=== PATIENT | male | born 1960 | race Hispanic/Latino ===

== ENCOUNTER → 2023-12-12 | Outpatient (CLI) | payer OTHER ==
[2023-12-12 16:35] LABS: POTASSIUM 4.1 mmol/L (3.5-5.1)
== END | disposition home or self-care (01) ==
LOC: LAB 15:33
PROVIDERS: ATTEND Internal Medicine Cardiovascular Disease
DX: I48.0 Paroxysmal atrial fibrillation (principal); R06.00 Dyspnea, unspecified
CPT/HCPCS: 36415; 80048; 83880

== ENCOUNTER 2024-12-09 11:18 | Emergency (ER) | payer OTHER ==
[~2024-12-09] VITALS: Ht 165.1 cm; Wt 83.5 kg
[2024-12-09 11:30] VITALS: BP 134/84; PULSE 89; RESP 16; TEMP 98.2; O2SAT 98
[2024-12-09] MEDS ORDERED: SILV50CR31 TP (12:32)
[2024-12-09] MEDS ORDERED: ACET650S14 PR (12:32)
--- NOTE | 2024-12-09 12:34 | ERN ---
General Chief Complaint: Arm Swelling/Redness Stated Complaint: CHEMICAL BURN TO RT LOWER ARM Time Seen by MD: 11:39 History of Present Illness Initial Comments The patient is a 64-year-old male with a significant past medical history of AFib, congestive heart failure, type 2 diabetes mellitus, dyslipidemia, essential hypertension, prior stroke, TIA presenting with 4 day history of right forearm erythema, swelling and tenderness following accidental chemical exposure. The patient reports that 4 days ago, while washing dishes he accidentally tipped his right hand and forearm into a sink filled with a gal of Clorox bleach diluted in water. He developed dizziness during the episode but did not lose consciousness. Since then he had increased erythema, pain and swelling localized to right dorsal wrist forearm and a circular pattern resembling a wrist watch burn. The redness has progressively spread from the wrist proximally towards the mid forearm. No blisters or ulcerations noted currently the wound is healing and reduced pain and severity since past 2 days Allergies: Coded Allergies: lisinopril (Unverified Allergy, Unknown, 12/09/24) naproxen (Unverified Allergy, Unknown, 12/09/24) Home Meds Active Scripts Silver Sulfadiazine (Silver Sulfadiazine) 1 % Cream..g., 1 APPL TP BID for burn for 10 Days, #50 GM 0 Refills Prov:KATIE BAUER MD 12/09/24 Discontinued Scripts Acetaminophen (Acetaminophen) 650 Mg Supp.rect, [address] Q6HPRN PRN for pain or fever for 4 Days, #12 SUPP 0 Refills Prov:KATIE BAUER MD 12/09/24 Past Medical History Past Medical History: A-Fib, Diabetes-Type II, High Cholesterol, Heart Disease, Hypertension, Stroke, TIA Past Surgical History: Other Surgical History Other: HERNIA ROS Dictation CONSTITUTIONAL: NO CHILLS, NO FEVER, NO WEAKNESS, NO DIAPHORESIS, NO MALAISE. HEAD/FACE: NO SIGNS OF TRAUMA. EENT: NO EYE PAIN, NO BLURRED VISION, NO TEARING, NO DOUBLE VISION, NO EAR PAIN, NO EAR DISCHARGE, NO NOSE PAIN, NO NASAL CONGESTION, NO THROAT PAIN, NO T HROAT SWELLING, NO MOUTH PAIN. RESPIRATORY: NO COUGH, NO ORTHOPNEA, NO SOB, NO STRIDOR, NO WHEEZING. CARDIOVASCULAR: NO CHEST PAIN, NO EDEMA, NO PALPITATIONS, NO SYNCOPE. GASTROINTESTINAL/ABDOMINAL: NO ABDOMINAL PAIN, NO CONSTIPATION, NO DIARRHEA, N O NAUSEA, NO VOMITING. GENITOURINARY: NO ABNORMAL DISCHARGE, NO DYSURIA, NO FREQUENT URINATION, NO HEMATURIA. NO COMPLAINTS OF PAIN IN THE GENITALS. MUSCULOSKELETAL: NO BACK PAIN, NO GOUT, NO JOINT PAIN, NO JOINT SWELLING, NO MUSCLE PAIN, NO MUSCLE STIFFNESS, NO NECK PAIN. INTEGUMENTARY: CHANGE IN COLOR, NO CHANGE IN HAIR/NAILS, NO DRYNESS, NO LESION, NO LUMPS, PAINFUL BLISTERS, RASH ON THE LEFT MEDIAL LEG AND WORSENING SWELLING NEUROLOGICAL/PSYCH: NO ANXIETY, NOT DEPRESSED, NO EMOTIONAL PROBLEM, NO HEADACHE, NO NUMBNESS, NO PRE-EXISTING DEFICIT, NO HISTORY OF SEIZURES, NO TREMORS, NO WEAKNESS. HEMATOLOGIC/LYMPHATIC: NOT ANEMIC, NO HISTORY OF BLOOD CLOTS, NO APPARENT BLEEDING, NO BRUISING, GLANDS NOT SWOLLEN. Skin REPORTS LOCALIZED SWELLING, REDNESS AND TENDERNESS OF THE RIGHT FOREARM. ALL SYSTEMS NEGATIVE, EXCEPT NOTED. Physical Exam Physical Exam Dictation VITAL SIGNS: REVIEWED. GENERAL APPEARANCE: ALERT, ORIENTED X3, NO ACUTE DISTRESS, OBESE. HEAD AND FACE: NON-TRAUMATIC. EYES: PERRL, PINK CONJUNCTIVAS, EYELID NO TRAUMA, ANTERIOR CHAMBER CLEAR. EARS: PINNAS INTACT AND NO SIGNS OF TRAUMA OR ERYTHEMA. EAR CANALS CLEAR AND NO DISCHARGE. TMS NO ERYTHEMA. NOSE: NO DISCHARGE, NO BLEEDING. OROPHARYNX: MOUTH NORMAL, TEETH NO CARIES, TONGUE PINK. PHARYNX CLEAR, NO ERYTHEMA. TONSILS NO EXUDATES, NO ABSCESSES NOTED. MUCOUS MEMBRANE MOIST. NECK: SUPPLE, NON-TENDER, NO THYROMEGALY, NO MASSES, NO JVD, NO BRUITS. BREAST: DEFERRED. CHEST: NO TENDERNESS, NO CREPITUS, NO PARADOXICAL MOVEMENT, NO RETRACTIONS. LUNGS: CLEAR, WELL-VENTILATED, SYMMETRIC, NO RALES, NO WHEEZING, NO RHONCHI, NO STRIDOR, GOOD BREATH SOUNDS BILATERALLY. HEART: REGULAR RATE, REGULAR RHYTHM, NO MURMUR, NO GALLOPS. VASCULAR: NO PERIPHERAL EDEMA. ABDOMEN: SOFT, POSITIVE BOWEL SOUNDS, NONDISTENDED, NO GUARDING, NONTENDER, NO REBOUND, NO MASSES NO HEPATOMEGALY, NO SPLENOMEGALY, NO CARLSON'S SIGN, NO HERNIAS. RECTAL: DEFERRED. GENITAL: DEFERRED. NEUROLOGICAL: NORMAL SPEECH, GROSS MOTOR FUNCTION INTACT, GROSS SENSORY FUNCTION INTACT. MUSCULOSKELETAL: NECK NONTENDER, FULL RANGE OF MOTION, BACK NONTENDER, FULL RANGE OF MOTION. EXTREMITIES: NONTENDER, FULL RANGE OF MOTION. SKIN: RIGHT FOREARM SHOWS AN ERYTHEMATOUS, WELL-DEMARCATED AREA OVER THE DORSAL AND VENTRAL SITES NEAR THE WRIST EXTENDING TO THE MID FOREARM. NO BULLAE OR SLUGGISH NOTED. TENDER TO PALPATION. NO PURULENT DRAINAGE. NO CREPITUS. LYMPHATICS: DEFERRED. MDM MDM: DIFFERENTIAL DIAGNOSIS: SUPERFICIAL PARTIAL THICKNESS CHEMICAL BURN, CONTACT DERMATITIS VERSUS SECOND-DEGREE BURN, LOCALIZED CELLULITIS SECONDARY TO CHEMICAL EXPOSURE. RATIONALE: TESTS CONSIDERED AND ORDERED SECONDARY TO SHARED DECISION MAKING INC LUDE: LABS, ECG AND RADIOLOGY PREVIOUS OUTSIDE RECORDS REVIEWED: OLD ER VISITS. RISK OF COMPLICATION AND/OR MORBIDITY OR MORTALITY OF PATIENT MANAGEMENT: NONE MEDICATIONS-PER MEDICATION RECONCILIATION NEED FOR HOSPITALIZATION: PATIENT DOES MEET CRITERIA FOR HOSPITALIZATION. NEED FOR EMERGENCY MAJOR/MINOR SURGERY: NO THERE ARE NO SOCIAL CONCERNS WITH THIS PATIENT. PRESCRIPTION DRUG MANAGEMENT PRESCRIPTIONS WILL INCLUDE SYMPTOMATIC CARE PATIENT'S PRIOR EXTERNAL MEDICAL RECORDS FROM OTHER ER VISITS WERE REVIEWED BY ME INDICATED. PRIOR TESTING AND RESULTS FROM PREVIOUS VISITS WERE REVIEWED. PRIOR TESTS WERE TAKEN INTO ACCOUNT WITH MEDICAL DECISION MAKING AND RESOURCE UTILIZATION, INDEPENDENT HISTORIAN/HISTORIANS WERE USED TO OBTAIN COMPLETE MEDICAL HISTORY. I INDEPENDENTLY INTERPRETED THE TEST THAT WERE PERFORMED, RESULTS WERE REVIEWED BY ME AND CONSIDERED FINDINGS ON RADIOLOGY IF ORDERED. MEDICAL MANAGEMENT AND EXAMINATION INTERPRETATION DISCUSSIONS WERE HAD BY ME WITH OTHER QUALIFIED HEALTHCARE PROFESSIONALS INDICATED FOR THE PATIENT'S CARE. PATIENT PRESENTS WITH LOCALIZED CHEMICAL MORALES FROM CLOROX EXPOSURE WITHOUT SIGNS OF SYSTEMIC TOXICITY OR SECONDARY INFECTION. NO SIGNS OF COMPARTMENTAL SYNDROME OR NECROTIZING SOFT TISSUE INFECTION AT THIS TIME. DIZZINESS LIKELY MULTIFACTORIAL. DUE TO NO EVIDENCE OF ACUTE HEART FAILURE EXACERBATION STROKE OR TIA. MORALES ARE BEING MANAGED CONSERVATIVELY UNLESS BLISTERING OR INFECTION DEVELOPS. ED Course Orders Procedure Category Date Status Time Tetanus,Diphtheria PHA 12/09/24 Complete Tox [Adult] (Diphther 12:30 Silver Sulfadiazine PHA 12/09/24 Complete (Silvadene) 13:00 Current Medications Medications (Trade) Dose Ordered Sig/Idania Route PRN Reason Start Time Stop Time Status Last Admin Dose Admin Silver Sulfadiazine (Silvadene) 1 APPLY ONCE ONCE TP 12/09/24 13:00 12/09/24 12:50 DC 12/09/24 12:40 Tetanus/ Diphtheria Toxoids Adsorbed (DiphthERIA-teTANUS TOXOID [ADULT]/ DECAVAC) 0.5 ml ONCE ONCE IM 3/24/25 12:30 12/09/24 12:31 DC 12/09/24 12:42 Vital Signs Date Time Temp Pulse Resp B/P (MAP) Pulse Ox O2 Delivery O2 Flow Rate FiO2 12/09/24 11:30 98.2 89 16 134/84 98 Room Air* 0 21 12/09/24 11:20 98.2 89 16 134/84 98 Room Air 0 DX & DISP Disposition: Discharge Decision to Admit Date: Dec 09, 2024 Decision to Admit Time: 12:25 Departure Impression: Primary Impression: Superficial chemical burn of right forearm Condition: Stable Scripts Silver Sulfadiazine (Silver Sulfadiazine) 1 % Cream..g. 1 APPL TP BID for burn for 10 Days, #50 GM 0 Refills Prov: KATIE BAUER MD 12/09/24 Additional Instructions: Silver sulfadiazine 1% cream applied topically to the burn area b.i.d. Acetaminophen 650 mg p.o. p.r.n. q.6h p.r.n. for pain. Tetanus toxoid IM has been administered. Wound center consult has been placed for further evaluation. Referrals: KAYLA LAM DO (PCP) CHANDLER GOMEZ MD Time of Disposition: 12:19 ATTESTATION BY PHYSICIAN I have seen and examined the patient. I reviewed the documentation, medical decision making, and treatment plan as noted by the resident above. I agree with the findings and plan of care. Muna Villavicencio RAGHAVA R MD Dec 09, 2024 12:34 PORTER VILLAVICENCIO DO Dec 10, 2024 08:00
[2024-12-09] MEDS: SILVER SULFADIAZINE CREAM 50 GM TP ONE (12:40)
[2024-12-09] MEDS: teTANUS/diphthERIA TOXOID [ADULT] 0.5 ML VIAL IM ONE (12:42)
== END 2024-12-09 12:50 | disposition home or self-care (01) ==
LOC: EDH 11:18
DX: T22.511A Corrosion of first degree of right forearm, initial encounter (principal); I48.91 Unspecified atrial fibrillation; E11.9 Type 2 diabetes mellitus without complications; I11.0 Hypertensive heart disease with heart failure; I50.9 Heart failure, unspecified; E78.00 Pure hypercholesterolemia, unspecified; M79.89 Other specified soft tissue disorders; Z86.73 Personal history of transient ischemic attack (TIA), and cerebral infarction without residual deficits; Z88.6 Allergy status to analgesic agent; Z88.8 Allergy status to other drugs, medicaments and biological substances; Y93.89 Activity, other specified; Y99.8 Other external cause status; Y92.89 Other specified places as the place of occurrence of the external cause
CPT/HCPCS: 90471; 90714; 99283

== ENCOUNTER 2024-12-26 10:08 | Emergency (ER) | payer OTHER ==
[~2024-12-26] VITALS: Ht 167.6 cm; Wt 83.9 kg
[~2024-12-26 10:08] MED LIST: SILV50CR31 TP
[2024-12-26] MEDS: BENZONATATE 100 MG CAPSULE PO STA (10:56)
--- NOTE | 2024-12-26 11:00 | ERN ---
ED Note History of Present Illness Stated Complaint: FLU LIKE SYMPTOMS Chief Complaint: Flu Symptoms Time Seen by MD: 10:19 Time Seen by Midlevel: 10:22 Dictation: 64-year-old male with a history of hypertension, diabetes, cholesterol coming in with complaints of cough, chills and fevers since Monday. Patient states couple of weeks ago his sister was diagnosed with the COVID. Allergies: Coded Allergies: lisinopril (Unverified Allergy, Unknown, 12/09/24) naproxen (Unverified Allergy, Unknown, 12/09/24) Home Meds Active Scripts Benzonatate (Tessalon Perles) 100 Mg Cap, 200 MG PO TID for cough for 15 Days, #45 CAP 0 Refills Prov:ADY LEONE NP 12/26/24 Silver Sulfadiazine (Silver Sulfadiazine) 1 % Cream..g., 1 APPL TP BID for burn for 10 Days, #50 GM 0 Refills Prov:KATIE BAUER MD 12/09/24 Past Medical History Past Medical History: A-Fib, CHF, Diabetes-Type II, High Cholesterol, Heart Disease, Hypertension, Stroke, TIA Surgical History: Other Surgical History Other: HERNIA, HEART CATH Review of System Dictation Constitutional: Negative for fever,chills, and weight loss Eyes: Negative for injury, pain,redness, and discharge ENT: Negative for injury,pain or swelling Cardiovascular: Negative for chest pain, palpitations, and edema Respiratory: Complaining of dry cough, and wheezing, Abdomen/GI: Negative for abdominal pain, nausea, vomiting, diarrhea, and constipation Back: Negative for injury and pain : Negative for injury, bleeding and discharge MS/Extremity: Negative for injury and deformity Skin: Negative for rash, and discoloration Neuro: Negative for headache, weakness, numbness, tingling, and seizure Psych: Negative for suicide ideation, homicidal ideation, and hallucinations Review of Systems: was completed Initial Vital Sign VS Vital Signs Date Time Temp Pulse Resp B/P (MAP) Pulse Ox O2 Delivery O2 Flow Rate FiO2 12/26/24 10:09 98.1 99 18 144/95 97 Room Air 0 12/26/24 11:16 21 Physical Exam Dictation General: awake, alert, NAD Head/Face: Normocephalic, atraumatic Eyes: PERRL, EOMI, vision at baseline ENT: oral cavity clear, TMs clear, no signs of infection Neck: Trachea midline, supple, no nuchal rigidity Cardiovascular: RRR, normal S1/S2, No MRGs, no JVD Respiratory: CTAB, no respiratory distress, No rales or wheezes Abdomen: Soft, non-tender, non-distended, normal bowel sounds, no guarding or rebound. Skin: Warm, dry, normal turgor, no rash MS/Extremity: Pulses equal, no cyanosis, neurovascular intact, FROM Neuro: COAx4, GCS 15, strength 5/5, CN 2-12 intact, normal cerebellar exam, normal gait, Psych: Normal behavior, mood, and affect normal Results (Laboratory/Radiology) Laboratory/Radiology Laboratory Tests Test 12/26/24 10:15 Influenza Type A Antigen Negative For Type A Influenza Type B Antigen Negative For Type B SARS-CoV-2 Antigen (Rapid) PRESUMPTIVE NEGATIVE Labs Reviewed?: Yes ED Course ED Course Orders Procedure Category Date Status Time Covid19 (Sars Antigen LAB 12/26/24 Complete Rapid) 10:30 Influenza Type A & B, LAB 12/26/24 Complete Rapid 10:30 Chest 1vw RAD 12/26/24 Taken 10:30 Benzonatate 100 Mg PHA 12/26/24 Complete Capsule (Tessalon 100 10:30 Rapid (Group A Strep) LAB 12/26/24 Logged 11:12 Current Medications Medications (Trade) Dose Ordered Sig/Idania Route PRN Reason Start Time Stop Time Status Last Admin Dose Admin Benzonatate (Tessalon 100mg Caps) 200 mg ONCE STAT PO 12/26/24 10:30 12/26/24 10:33 DC 12/26/24 10:56 Vital Signs Date Time Temp Pulse Resp B/P (MAP) Pulse Ox O2 Delivery O2 Flow Rate FiO2 12/26/24 11:16 98.4 76 16 146/83 100 Room Air* 0 21 12/26/24 10:09 98.1 99 18 144/95 97 Room Air 0 Medical Decision Making MDM MDM: 64-year-old male with a history of hypertension, diabetes, cholesterol coming in with complaints of cough, chills and fevers since Monday. Patient states couple of weeks ago his sister was diagnosed with the COVID. Swabs negative for COVID and flu. Chest x-ray shows no acute lung pathology. Patient is oxygen saturation within normal range, not hypoxic not tachypneic. Discussed findings with the patient. Educated patient to take [id number] symptomatic control like Tylenol or Motrin and I will prescribe cough medication. Educated patient if symptoms do not improve in the next 2-3 days to return back to the emergency room or follow up with PCP. Patient verbalized understanding, answered all questions. Differential diagnosis: COVID, flu, pneumonia, viral syndrome, URI Rationale: Tests considered and ordered secondary to shared decision making include: Previous outside records reviewed: Old ER visits. Risk of complication and/or morbidity or mortality of patient management: None Medications-Per medication reconciliation Need for hospitalization: Patient does not meet criteria for hospitalization. Need for emergency major/minor surgery: No There are no social concerns with this patient. Prescription drug management Prescriptions will include symptomatic care Patient's prior external medical records from other ER visits were reviewed by me as indicated. Prior testing and results from previous visits were reviewed. Prior tests were taken into account with medical decision making and resource utilization, independent historian/historians were used to obtain complete medical history. I independently interpreted the test that were performed, results were reviewed by me and considered findings on radiology if ordered. Medical management and examination interpretation discussions were had by me with other qualified healthcare professionals as indicated for the patient's care. DX & DISP Disposition: Discharge Departure Impression: Primary Impression: Upper respiratory infection Condition: Stable Scripts Benzonatate (Tessalon Perles) 100 Mg Cap 200 MG PO TID for cough for 15 Days, #45 CAP 0 Refills Prov: ADY LEONE NP 12/26/24 Additional Instructions: Take [id number] Tylenol or Motrin for fever and body aches. You can take Tessalon Perles for your cough. If symptoms do not improve in the next 2-3 days return back to the hospital or follow up with your primary doctor. Referrals: SELF,REFERRAL (PCP) Time of Disposition: 11:16 I have reviewed the case, and I agree with, Diagnosis and Plan ADY LEONE NP Dec 26, 2024 11:00
[2024-12-26 11:06] LABS: COVID19 (SARS ANTIGEN RAPID) PRESUMPTIVE NEGATIVE (NEGATIVE)
[2024-12-26 11:07] LABS: INFLUENZA TYPE A Negative For Type A (NEGATIVE); INFLUENZA TYPE B Negative For Type B (NEGATIVE)
[2024-12-26] MEDS ORDERED: BENZ-39 PO (11:17)
[2024-12-26 11:30] VITALS: BP 140/81; PULSE 77; RESP 13; TEMP 99.4; O2SAT 97
--- NOTE | 2024-12-26 12:20 | HMCIMG ---
CHEST 1VW HISTORY: Follow-up COMPARISON: None FINDINGS: A frontal projection of the chest was obtained. No acute pulmonary infiltrates is seen. The heart is normal in size. Prominent interstitial markings are seen. No evidence of aortic calcification is seen. IMPRESSION: 1. No acute pulmonary infiltrate is seen.
== END 2024-12-26 11:45 | disposition home or self-care (01) ==
LOC: EDH 10:08
DX: J06.9 Acute upper respiratory infection, unspecified (principal); I11.0 Hypertensive heart disease with heart failure; I50.9 Heart failure, unspecified; E11.9 Type 2 diabetes mellitus without complications; E78.00 Pure hypercholesterolemia, unspecified; Z20.822 Contact with and (suspected) exposure to COVID-19; Z86.73 Personal history of transient ischemic attack (TIA), and cerebral infarction without residual deficits; Z88.6 Allergy status to analgesic agent; Z88.8 Allergy status to other drugs, medicaments and biological substances; Z98.890 Other specified postprocedural states
CPT/HCPCS: 71045; 87426; 87804; 87880; 99284